=== PATIENT | male | born 1985 | race Caucasian/White ===

== ENCOUNTER 2020-09-03 01:04 | Emergency (ER) | payer BC ==
[~2020-09-03] VITALS: Ht 172.7 cm; Wt 68.2 kg
[2020-09-03 01:32] LABS: BASO # 0.1 (0.0-0.2); BASO % 0.5 % (0.0-2.0); EOS # 0.1 (0.0-0.7); EOS % 0.7 % (0-4.0); GRAN # 11.7 (1.4-6.5); GRAN % 77.5 % (42.2-75.2); HEMATOCRIT 45.1 % (42.0-52.0); HEMOGLOBIN 15.9 g/dl (13.5-18.0); LYMPH # 2.5 (1.2-3.4); LYMPH % 16.3 % (20.0-51.0); MEAN CELL VOLUME 83 fl (80.0-100.0); MEAN CORPUSCULAR HEMOGLOBIN 29 pg (27.0-31.0); MEAN CORPUSCULAR HGB CONC 35 g/dl (33.0-37.0); MEAN PLATELET VOLUME 10.6 fl (7.4-10.4); MONO # 0.7 (0.1-0.6); MONO % 4.7 % (1.7-9.3); PLATELET COUNT 235 K/mm3 (130-400); RED BLOOD COUNT 5.44 M/mm3 (4.20-5.60)
[2020-09-03 01:45] LABS: ALBUMIN 5.4 gm/dL (3.5-5.0); BILIRUBIN,TOTAL 0.9 mg/dL (0.0-1.0); CREATININE, serum 1.07 (0.66-1.25); POTASSIUM 3.6 mmol/L (3.4-5.0); TOTAL PROTEIN 9.4 gm/dL (6.4-8.2)
[2020-09-03 02:53] VITALS: TEMP 98.3
[2020-09-03 04:20] VITALS: BP 131/81; PULSE 84
== END 2020-09-03 04:24 | disposition home or self-care (01) ==
LOC: COL.ER 01:04
PROVIDERS: Emergency Medicine
DX: K85.90 Acute pancreatitis without necrosis or infection, unspecified (principal); R74.8 Abnormal levels of other serum enzymes; Z90.49 Acquired absence of other specified parts of digestive tract
CPT/HCPCS: C9113; J0780; J2270; J7030

== ENCOUNTER 2020-12-04 16:22 | Emergency (ER) | payer BC ==
[~2020-12-04] VITALS: Ht 172.7 cm; Wt 68.2 kg
[2020-12-04 16:49] VITALS: TEMP 98.2
[2020-12-04 17:16] LABS: BASO # 0.1 (0.0-0.2); BASO % 0.4 % (0.0-2.0); EOS % 0.1 % (0-4.0); GRAN # 11.6 (1.4-6.5); HEMOGLOBIN 14.9 g/dl (13.5-18.0); LYMPH # 1.8 (1.2-3.4); LYMPH % 12.5 % (20.0-51.0); MEAN CELL VOLUME 83 fl (80.0-100.0); MEAN CORPUSCULAR HEMOGLOBIN 30 pg (27.0-31.0); MEAN CORPUSCULAR HGB CONC 36 g/dl (33.0-37.0); MEAN PLATELET VOLUME 10.8 fl (7.4-10.4); MONO # 0.7 (0.1-0.6); MONO % 4.8 % (1.7-9.3); PLATELET COUNT 253 K/mm3 (130-400); RED BLOOD COUNT 5.04 M/mm3 (4.20-5.60); REDCELL DISTRIBUTION WIDTH-CV 12.4 % (11.5-14.5)
[2020-12-04] MEDS ORDERED: PEPCID40 MG PO (17:25)
[2020-12-04] MEDS ORDERED: QUALITY CHOICE80 MG PO (17:25)
[2020-12-04] MEDS ORDERED: CRESTOR20 MG PO (17:26)
[2020-12-04] MEDS ORDERED: CREON 36000 (17:26)
[2020-12-04] MEDS ORDERED: ADDERALL XR20 MG PO (17:27)
[2020-12-04 17:32] LABS: ALBUMIN 5.1 gm/dL (3.5-5.0); CREATININE, serum 1.02 (0.66-1.25); POTASSIUM 3.7 mmol/L (3.4-5.0); TOTAL PROTEIN 8.6 gm/dL (6.4-8.2)
[2020-12-04] MEDS ORDERED: PHENERGAN 25 TA25 MG PO (18:12)
[2020-12-04 18:18] VITALS: BP 129/77; PULSE 80
== END 2020-12-04 18:22 | disposition home or self-care (01) ==
LOC: COL.ER 16:22
PROVIDERS: Physician Assistant
DX: R11.15 Cyclical vomiting syndrome unrelated to migraine (principal); F90.9 Attention-deficit hyperactivity disorder, unspecified type; Z79.899 Other long term (current) drug therapy
CPT/HCPCS: J0780; J2060; J7030